=== PATIENT | male | born 2000 | race Caucasian/White ===

== ENCOUNTER 2019-09-02 18:31 | Emergency (ER) | payer OTHER ==
[~2019-09-02] VITALS: Ht 172.7 cm; Wt 54.4 kg
[2019-09-02 18:33] VITALS: Ht 172.7 cm; Wt 54.4 kg
[2019-09-02 18:59] LABS: UA SPECIFIC GRAVITY <=1.005 (1.005-1.035); microscopic required? YES; urine erythrocyte TRACE (NEGATIVE)
[2019-09-02 19:04] LABS: BASOPHIL % 0.6 % (0-2); PLATELET COUNT 245 x10^3mcL (130-400)
[2019-09-02 19:15] LABS: AMPHETAMINE QUAL UR POSITIVE (See below)
[2019-09-02 19:19] LABS: CALCIUM 8.4 mg/dL (8.5-10.1); CARBON DIOXIDE 23.5 mmol/L (21-32); CHLORIDE SERUM 107 mmol/L (98-107); CREATININE SERUM 0.9 mg/dL (0.7-1.3); GFR1 > 60 mL/min; GLUCOSE SERUM 86 mg/dL (74-106); POTASSIUM SERUM 3.4 mmol/L (3.5-5.1); SODIUM SERUM 145 mmol/L (136-145)
[2019-09-02 19:24] LABS: ALBUMIN 4.5 g/dL (3.4-5.0); ALKALINE PHOSPHATASE 72 U/L (46-116); ALT/SGPT 24 U/L (16-63); AST/SGOT 22 U/L (15-37); BILIRUBIN TOTAL 0.8 mg/dL (0.20-1.00); TOTAL PROTEIN, SERUM 7.8 g/dL (6.4-8.2)
[2019-09-02 19:38] LABS: FREE T4 1.23 ng/dL (0.76-1.46); FREE THYROXINE INDEX 3.5 ug/dL (1.4-4.5); T4(THYROXINE) 8.9 ug/dL (4.7-13.3)
[2019-09-02 19:43] LABS: T3 TOTAL 1.25 ng/mL
[2019-09-03 02:13] VITALS: BP 102/75
== END 2019-09-03 02:13 | disposition home or self-care (01) ==
LOC: ED 18:31
PROVIDERS: Emergency Medicine
DX: F10.129 Alcohol abuse with intoxication, unspecified (principal); F19.10 Other psychoactive substance abuse, uncomplicated; R40.4 Transient alteration of awareness
CPT/HCPCS: 84439; G0480; J1885; J7030; Q0092